=== PATIENT | female | born 1960 | race Caucasian/White ===

== ENCOUNTER → 2021-10-14 | Outpatient (CLI) | payer BC | LOC: HEART 5 08:30 | DX: R07.9 Chest pain, unspecified (principal); R00.2 Palpitations; I51.89 Other ill-defined heart diseases | CPT/HCPCS: 93306 ==

== ENCOUNTER → 2021-10-29 | Outpatient (CLI) | payer BC | LOC: HEART 5 08:17 | DX: R07.9 Chest pain, unspecified (principal); I49.3 Ventricular premature depolarization | CPT/HCPCS: 78452; A9502 ==